=== PATIENT | male | born 1945 | race Caucasian/White ===

== ENCOUNTER 2022-02-15 22:30 | Emergency (ER) | payer MEDICARE, OTHER, SELFPAY ==
--- NOTE | ~2022-02-15 | CT_ITS ---
EXAMINATION: CT brain wo con DATE: 02/15/2022 22:50 INDICATION: Altered mental status. TECHNIQUE: Computed tomography (CT) of the head was performed without intravenous contrast. The mA wa s adjusted according to patient size. Iterative reconstruction technique was employed. The dose-lengt h product was 605.33 mGy-cm. COMPARISON: None FINDINGS: There is no intracranial hemorrhage, acute infarction, or abnormal intracranial mass lesion . The ventricles are normal in size. The orbits are normal. There is mucosal thickening in the parana jeff sinuses. The mastoid air cells are normal. IMPRESSION: 1. Normal brain. Reviewed, dictated and finalized at location A. TRONIC SYSTEM ENGINEER IMPRESSION: 1. Normal brain.
[2022-02-15 22:35] VITALS: BP 124/97; PULSE 65; RESP 16; O2SAT 94
--- NOTE | 2022-02-15 23:05 | ED.AMS ---
HPI - Altered Mental Status General Chief Complaint: Altered Mental Status Stated Complaint: AMS Time Seen by Provider: 02/15/22 22:34 History of Present Illness HPI narrative: 76-year-old male presented emergency department for evaluation of mental status change. retirement states that patient is usually disorientated but is more disorientated than normal time. Patient denies any complaints at this time. Patient does have a history of dementia. Related Data Allergies Allergy/AdvReac Type Severity Reaction Status Date / Time quetiapine [From Seroquel] Allergy Unknown Verified 02/15/22 22:41 Review of Systems Review of Systems: CONSTITUTIONAL: Denies fever, chills, or sweats. EYES: Denies visual changes, redness, or discharge. ENT: Denies rhinorrhea, congestion, sore throat, or otalgia. CARDIOVASCULAR: Denies chest pain, palpitations, or edema. RESPIRATORY: Denies cough or dyspnea. GASTROINTESTINAL: Denies abdominal pain, nausea, vomiting, or diarrhea. GENITOURINARY: Denies dysuria or hematuria. SKIN: Denies rash or itching. MUSCULOSKELETAL: Denies back pain, joint pain, or myalgia. NEUROLOGIC: See HPI Exam Narrative: APPEARANCE: Well appearing, no pain, no distress, well-nourished. HEAD: normocephalic, atraumatic. EYES: PERRLA/EOMI, conjunctivae clear. NOSE: Normal no drainage EARS:TMS clear with good light reflex. THROAT: Pharynx clear, no exudate. NECK: Supple. No adenopathy, no masses. RESPIRATORY: Airway patent, respirations nonlabored. Clear to auscultation bilaterally, no rales, rhonchi, wheezing. CARDIOVASCULAR: Regular rate and rhythm without murmurs rubs or gallops. ABDOMINAL: Soft, nontender, nondistended, normal bowel sounds MUSCULOSKELETAL: Moves all extremities. Strength/ROM intact, No edema, No calf tenderness. NEURO: Alert. Cranial nerves II through XII intact. Grossly intact SKIN: Warm, dry. Normal Color Course Course Emergency Course: Patient is afebrile with a minor leukocytosis of 10.1. Patient CBC is normal appearing, no significant abnormalities on the CMP. UA shows no evidence of urinary tract infection. Patient was negative for COVID and influenza. Patient's head CT is negative. Patient continues to have no complaints. Patient was [facility] the [facility] Vital Signs Vital signs: Vital Signs Pulse Rate 65 02/15/22 22:35 Respiratory Rate 16 02/15/22 22:35 Blood Pressure 124/97 H 02/15/22 22:35 Pulse Oximetry 94 02/15/22 22:35 Oxygen Delivery Room Air 02/15/22 22:35 Pulse Rate 66 02/15/22 23:34 Respiratory Rate 17 02/15/22 23:34 Blood Pressure 161/91 H 02/15/22 23:34 Pulse Oximetry 99 02/15/22 23:34 Oxygen Delivery Room Air 02/15/22 22:35 MDM - Altered Mental Status Lab Data Attestation: I reviewed the patient's lab results. Result diagrams: 02/15/22 23:09 02/15/22 23:09 Labs: Lab Results 02/15/22 02/15/22 02/15/22 Range/Units 23:09 23:09 23:09 WBC 10.1 H (4.5-10.0) K/mm3 RBC 4.28 L (4.6-6.20) M/mm3 Hgb 13.7 L (14.0-18.0) g/dL Hct 42.3 (42.0-52.0) % MCV 98.8 (80-100) fl MCH 32.0 (26-34) pg MCHC 32.4 (32-36) g/dl RDW 12.4 (11.5-14.5) % Plt Count 266 (150-375) k/mm3 MPV 9.4 (7.4-10.4) fl Immature Gran % (Auto) 0.8 H (0-0.5) % Neut % (Auto) 73.6 H (45.5-73.1) % Lymph % (Auto) 13.3 L (18.3-44.2) % [place] % (Auto) 8.1 (2.6-8.5) % Eos % (Auto) 3.8 (0-4.4) % Baso % (Auto) 0.4 (0.2-1.2) % Lymph # (Auto) 1.34 (0.9-3.2) K/mm3 [place] # (Auto) 0.8 H (0.1-0.6) K/mm3 Eos # (Auto) 0.4 H (0-0.3) K/mm3 Baso # (Auto) 0.0 (0.0-0.1) K/mm3 Abs Immat Gran (auto) 0.08 H (0.00-0.031) K/mm3 Absolute Neuts (auto) 7.4 H (1.3-6.7) K/mm3 Absolute Nucleated RBC 0.0 (0.0-0.012) K/mm3 Nucleated RBC % 0.0 (0.0-0.2) % Sodium 137 (137-145) mmol/L Potassium 4.4 (3.4-5.0) mmol/L Chlor
[2022-02-15 23:15] VITALS: PULSE 65
[2022-02-15 23:24] LABS: Basophils Percent Auto 0.4 % (0.2-1.2); Eosinophils Absolute Auto 0.4 K/mm3 (0-0.3); Eosinophils Percent Auto 3.8 % (0-4.4); Hematocrit 42.3 % (42.0-52.0); Hemoglobin 13.7 g/dL (14.0-18.0); Immature Granulocyte Absolute 0.08 K/mm3 (0.00-0.031); Immature Granulocyte Percent A 0.8 % (0-0.5); Lymphocytes Absolute Auto 1.34 K/mm3 (0.9-3.2); Lymphocytes Percent Auto 13.3 % (18.3-44.2); Mean Corpuscular HGB Conc 32.4 g/dl (32-36); Mean Corpuscular Volume 98.8 fl (80-100); Mean Platelet Volume 9.4 fl (7.4-10.4); Monocytes Absolute Auto 0.8 K/mm3 (0.1-0.6); Monocytes Percent Auto 8.1 % (2.6-8.5); Neutrophils Absolute Auto 7.4 K/mm3 (1.3-6.7); Neutrophils Percent Auto 73.6 % (45.5-73.1); Platelet Count Result 266 k/mm3 (150-375); Red Blood Count 4.28 M/mm3 (4.6-6.20); Red Cell Distribution Width 12.4 % (11.5-14.5); White Blood Count 10.1 K/mm3 (4.5-10.0)
[2022-02-15 23:34] VITALS: BP 161/91; PULSE 66; RESP 17; O2SAT 99
--- NOTE | 2022-02-15 23:37 | PC.NURSE ---
Report given to KIRA Stone
[2022-02-15 23:41] LABS: Alanine Aminotransferase 6 U/L (6-50); Alkaline Phosphatase 90 U/L (38-126); Anion Gap 7 mmol/L (8-16); Aspartate Amino Transferase 21 U/L (17-59); Bilirubin,Total 0.7 mg/dL (0.2-1.3); Blood Urea Nitrogen 29 mg/dL (9-20); Calcium 8.4 mg/dL (8.4-10.2); Carbon Dioxide 26 mmol/L (22-30); Chloride 104 mmol/L (98-107); Estimated Glomerular Filt Rate > 60; Glucose 94 mg/dL (65-110); Potassium 4.4 mmol/L (3.4-5.0); Sodium 137 mmol/L (137-145)
[2022-02-15 23:45] LABS: Appearance Urine Clear (Clear); Bilirubin Urine Negative (Negative); Blood Urine Negative (Negative); Color Urine Yellow (Yellow); Glucose Urine UA Negative (Negative); Ketones Urine 1+ mg/dL (Negative); Leukocyte Esterase Ur Negative LEU/UL (Negative); Nitrate Urine Negative (Negative); Protein Urine Negative (Negative); Specific Grav Ur 1.025 (1.001-1.035)
[2022-02-15 23:49] LABS: Mucus Urine Rare /lpf; Squamous Epithelial Cell Urine Rare /hpf (Few); WBC Urine 0-3 /hpf
[2022-02-15 23:52] LABS: Add Urine Microscopic? YES
[2022-02-16] LABS: Influenza A QL RT-PCR Negative (Negative); Influenza B QL RT-PCR Negative (Negative); SARS-CoV-2 RNA PCR Negative
== END 2022-02-16 00:51 ==
PROVIDERS: Emergency Provider Emergency Medicine; PCP Nurse Practitioner Family
DX: R41.82 Altered mental status, unspecified (principal); F03.90 Unspecified dementia, unspecified severity, without behavioral disturbance, psychotic disturbance, mood disturbance, and anxiety; Z20.822 Contact with and (suspected) exposure to COVID-19
CPT/HCPCS: 36415; 51701; 70450; 80053; 81001; 85025; 87636; 99284

== ENCOUNTER 2022-05-29 18:07 | Observation (INO) | payer MEDICARE, OTHER, SELFPAY ==
[2022-05-29] VITALS (13 sets, daily range): BP systolic 72–125; BP diastolic 42–75; PULSE 67–87; RESP 10–21; TEMP 36.8; O2SAT 97–100
--- NOTE | ~2022-05-29 | XR_ITS ---
EXAM: XR pelvis 1-2V DATE: 05/29/2022 19:15 HISTORY: fall . COMPARISON: None available. FINDINGS: Soft tissue anchors over the lower pelvis. Decreased mineralization. No fracture or disloc ation. No lytic or blastic lesion. Degenerative disc disease in the lumbar spine. Mild left and moder ate right hip osteoarthritis. No erosion or periosteal change. Soft tissues within normal limits. IMPRESSION: No acute osseous finding in the pelvis. Reviewed, dictated and finalized at location K. MEASURES ABSTRACTOR
--- NOTE | ~2022-05-29 | CT_ITS ---
EXAMINATION: CT cervical spine wo con DATE: 05/29/2022 19:09 INDICATION: fall TECHNIQUE: Computed tomography (CT) of the cervical spine was performed without intravenous contrast. Automated exposure control and iterative reconstruction technique were employed. The dose-length pro duct was 225.68 mGy-cm. COMPARISON: None. FINDINGS: Vertebral Body Alignment: Intact. . Craniocervical and atlantoaxial alignment: Moderate degenerative change. Alignment intact. Osseous structures/fracture: No evidence of a lytic or blastic process in the visualized spine. No e vidence of acute fracture. . Cervical soft tissues: The paraspinal soft tissues planes are maintained. Degenerative changes: Multilevel degenerative disc disease and facet arthropathy. Severe right neural foraminal narrowing at C5-6. Severe left neural foraminal narrowing at C4-5 no severe central canal stenosis. IMPRESSION: No acute fracture or traumatic malalignment in the cervical spine. Reviewed, dictated and finalized at location K. ETL DEVELOPER
--- NOTE | ~2022-05-29 | XR_ITS ---
EXAMINATION: XR chest 1V portable Exam Date/Time: 05/29/2022 20:50 STEAM AND GAS TURBINES ASSEMBLER HISTORY: Fall UNABLE TO GET HISTORY, AMS Comparison: None available. RESULT: Lines, tubes, and devices: None. Lungs and pleura: Mild diffuse reticular opacities. Senescent change. Calcified left lung granulomas . Streaky bibasilar opacities likely represent atelectasis or scar. Cardiomediastinal silhouette: Mild arch ectasia and tortuosity. Other: No acute osseous or upper abdominal finding. IMPRESSION: Mild interstitial edema. Reviewed, dictated and finalized at location K. M AND GAS TURBINES ASSEMBLER IMPRESSION: Mild interstitial edema.
--- NOTE | ~2022-05-29 | CT_ITS ---
EXAMINATION: CT brain wo con DATE: 05/29/2022 19:06 INDICATION: Ground-level fall. TECHNIQUE: Computed tomography (CT) of the head was performed without intravenous contrast. The mA wa s adjusted according to patient size. Iterative reconstruction technique was employed. The dose-lengt h product was 1210.67 mGy-cm. COMPARISON: 02/15/2022. FINDINGS: No acute intracranial hemorrhage or extra-axial fluid collection. No hydrocephalus, mass, or herniation. No acute ischemic infarct. Unremarkable dural venous sinus attenuation. No acute osseous abnormality. Small right parietal scalp contusion. Ethmoid mucosal thickening, the remaining aerated spaces are clear. Mild atrophy and chronic white matter change. Atherosclerotic intracranial calcification. Left basal ganglia calcification. IMPRESSION: No acute intracranial process. Reviewed, dictated and finalized at location K. H CORRECTIONS OFFICER
--- NOTE | 2022-05-29 19:04 | ED.HEATRA ---
HPI - Head Injury General Chief complaint: Head Injury Stated complaint: FALL, HEAD INJURY, NO BLOOD THINNERS Time Seen by Provider: 05/29/22 18:45 Source: patient and EMS Mode of arrival: EMS Limitations: altered mental status History of Present Illness HPI Narrative: Patient is 76 years old white male came by ambulance following witnessed fall at the facility. Facility denies loss of consciousness, patient is confused which is his baseline, patient unable to answer any LOC questions or say how he fell. Arrived with c-collar on. Patient was able to answer yes or no and follow my commands sometime History of Parkinson's, psychosis/dementia with behavioral disturbances, hyperlipidemia Related Data Allergies Allergy/AdvReac Type Severity Reaction Status Date / Time quetiapine [From Seroquel] Allergy Unknown Verified 05/29/22 18:48 Review of Systems Review of Systems: All systems reviewed & are unremarkable except as noted in HPI and below Exam Narrative: General appearance: Well-developed, well-nourished, c-collar in place Skin: Normal color Head: Normocephalic, nontraumatic Eyes: Clear conjunctiva ENT: Oropharynx normal, ears normal, nose normal Neck: C-collar in place Chest and respiratory: Airway patent, no respiratory distress, no accessory muscle use Heart: Regular rate/rhythm Abdomen: Soft, nontender, no organomegaly, quiet bowel sounds Vascular: Normal peripheral pulses, normal capillary refill. Musculoskeletal: Normal range of motion, nontender back Neurologic: Alert and disoriented x3 Course Vital Signs Vital signs: Vital Signs Temperature 36.8 C 05/29/22 18:28 Pulse Rate 87 05/29/22 18:28 Respiratory Rate 16 05/29/22 18:28 Blood Pressure 72/42 L 05/29/22 18:28 Pulse Oximetry 98 05/29/22 18:28 Oxygen Delivery Room Air 05/29/22 18:28 Temperature 36.8 C 05/29/22 18:28 Pulse Rate 71 05/29/22 19:56 Respiratory Rate 16 05/29/22 19:56 Blood Pressure 122/75 05/29/22 19:56 Pulse Oximetry 98 05/29/22 19:30 Oxygen Delivery Room Air 05/29/22 18:28 MDM - Head Injury MDM Narrative Medical decision making narrative: Patient is 76 years old white male came to the emergency room from detention because of a fall. History of Parkinson. Patient is nonverbal. Labs, UA, chest x-ray, CT head, cervical spine, pelvis ordered. Blood work-up showed creatinine of 1.4 compared to 0.7 February 15, 2022, urine analysis showing infection, which could be the underlying cause of patient falling. CT head, cervical spine and pelvis showed no acute abnormalities. Chest x-ray showed mild interstitial edema. Patient received 1 g of Rocephin IV and 1 L of normal saline IV prior to admission. Differential Diagnosis Differential diagnosis: Likely concussion without loss of consciousness, subarachnoid hematoma, subdural hematoma and other (Electrolyte imbalance, urinary tract infection, pneumonia) Lab Data 05/29/22 19:22 05/29/22 19:22 Labs: Lab Results 05/29/22 05/29/22 05/29/22 Range/Units 19:22 19:22 19:53 WBC 6.6 (4.5-10.0) K/mm3 RBC 3.83 L (4.6-6.20) M/mm3 Hgb 12.4 L (14.0-18.0) g/dL Hct 37.5 L (42.0-52.0) % MCV 97.9 (80-100) fl MCH 32.4 (26-34) pg MCHC 33.1 (32-36) g/dl RDW 12.6 (11.5-14.5) % Plt Count 162 (150-375) k/mm3 MPV 10.8 H (7.4-10.4) fl Immature Gran % (Auto) 0.5 (0-0.5) % Neut % (Auto) 71.0 (45.5-73.1) % Lymph % (Auto) 16.9 L (18.3-44.2) % [place] % (Auto) 8.0 (2.6-8.5) % Eos % (Auto) 3.3 (0-4.4) % Baso % (Auto) 0.3 (0.2-1.2) % Lymph # (Auto) 1.12 (0.9-3.2) K/mm3 [place] # (Auto) 0.5 (
[2022-05-29 19:29] LABS: Basophils Percent Auto 0.3 % (0.2-1.2); Eosinophils Absolute Auto 0.2 K/mm3 (0-0.3); Eosinophils Percent Auto 3.3 % (0-4.4); Hematocrit 37.5 % (42.0-52.0); Hemoglobin 12.4 g/dL (14.0-18.0); Immature Granulocyte Absolute 0.03 K/mm3 (0.00-0.031); Immature Granulocyte Percent A 0.5 % (0-0.5); Lymphocytes Absolute Auto 1.12 K/mm3 (0.9-3.2); Lymphocytes Percent Auto 16.9 % (18.3-44.2); Mean Corpuscular HGB Conc 33.1 g/dl (32-36); Mean Corpuscular Hemoglobin 32.4 pg (26-34); Mean Corpuscular Volume 97.9 fl (80-100); Mean Platelet Volume 10.8 fl (7.4-10.4); Monocytes Absolute Auto 0.5 K/mm3 (0.1-0.6); Neutrophils Absolute Auto 4.7 K/mm3 (1.3-6.7); Platelet Count Result 162 k/mm3 (150-375); Red Blood Count 3.83 M/mm3 (4.6-6.20); Red Cell Distribution Width 12.6 % (11.5-14.5); White Blood Count 6.6 K/mm3 (4.5-10.0)
[2022-05-29 19:40] LABS: Alanine Aminotransferase 7 U/L (6-50); Albumin Level 3.6 g/dL (3.5-5.1); Alkaline Phosphatase 56 U/L (38-126); Anion Gap 5 mmol/L (8-16); Aspartate Amino Transferase 25 U/L (17-59); Bilirubin,Total 0.8 mg/dL (0.2-1.3); Blood Urea Nitrogen 36 mg/dL (9-20); Calcium 8.1 mg/dL (8.4-10.2); Carbon Dioxide 25 mmol/L (22-30); Chloride 108 mmol/L (98-107); Estimated Glomerular Filt Rate 49; Glucose 99 mg/dL (65-110); Sodium 138 mmol/L (137-145)
[2022-05-29 20:03] LABS: Appearance Urine Clear (Clear); Bilirubin Urine Negative (Negative); Blood Urine Trace-intact (Negative); Color Urine Yellow (Yellow); Glucose Urine UA Negative (Negative); Ketones Urine 1+ mg/dL (Negative); Leukocyte Esterase Ur Trace LEU/UL (Negative); Nitrate Urine Positive (Negative); Protein Urine Trace mg/dL (Negative); Specific Grav Ur 1.015 (1.001-1.035)
[2022-05-29 20:07] LABS: Bacteria Urine Trace /hpf; Mucus Urine Rare /lpf; RBC Urine 21-50 /hpf (0-2); Squamous Epithelial Cell Urine Rare /hpf (Few); WBC Urine 16-20 /hpf
[2022-05-29 20:23] LABS: Add Urine Microscopic? YES
--- NOTE | 2022-05-29 20:44 | ECG_ITS ---
Measurements Intervals [place] Rate: 64 P: 58 TX: 150 QRS: 20 QRSD: 94 T: 7 QT: 407 QTc: 421 Interpretive Statements SINUS RHYTHM MINIMAL VOLTAGE CRITERIA FOR LVH, CONSIDER NORMAL VARIANT [MEETS CRITERIA IN ONE OF: R(aVL), S(V1), R(V5), R(V5/V6)+S(V1)] NONSPECIFIC T-WAVE ABNORMALITY ABNORMAL ECG NO PREVIOUS ECG AVAILABLE FOR COMPARISON Electronically Signed On 05-30-2022 13:39:35 GEOPHYSICAL MANAGER by Denis Sylvester M.D.
--- NOTE | 2022-05-29 20:59 | PC.NURSE ---
c-collar removed at this time.
[2022-05-29 21:14] LABS: Lactic Acid Reflex 0.7 mmol/L (0.7-2.0)
[2022-05-29 21:17] LABS: CRP < 0.5 mg/dL (<1.0)
[2022-05-29 21:40] LABS: Influenza A QL RT-PCR Negative (Negative); Influenza B QL RT-PCR Negative (Negative); SARS-CoV-2 RNA PCR Negative
[2022-05-29] MEDS: SODIUM CHLORIDE 0.9% IV 1,000 ML 999 ML IV CONT (21:44)
--- NOTE | 2022-05-29 23:44 | ADMGEN ---
This patient, George Harding, was admitted to Medical Room 245-. Patient/family oriented to hospital policies and general routines including ID bracelet, bed and alarms, visiting hours, pain management, procedures, bathroom and other care routines, personal items, smoking policy, room service/diet, and visiting hours. Information on how to activate the Rapid Response Team has been discussed. Patient/Family are encouraged to report perceived risks to care and to ask questions if they do not understand what they are told or what they should do.
[2022-05-29] MEDS: SODIUM CHLORIDE 0.9% IV 1,000 ML 100 ML IV CONT (23:54)
[2022-05-30 00:26] VITALS: BP 136/87; PULSE 73; RESP 21; TEMP 36.3; O2SAT 100
[2022-05-30 05:47] LABS: Hematocrit 37.6 % (42.0-52.0); Hemoglobin 12.4 g/dL (14.0-18.0); Mean Corpuscular Hemoglobin 32.5 pg (26-34); Mean Corpuscular Volume 98.7 fl (80-100); Mean Platelet Volume 10.4 fl (7.4-10.4); Platelet Count Result 145 k/mm3 (150-375); Red Blood Count 3.81 M/mm3 (4.6-6.20); Red Cell Distribution Width 12.6 % (11.5-14.5); White Blood Count 5.1 K/mm3 (4.5-10.0)
[2022-05-30 06:00] VITALS: BP 150/78; PULSE 58; RESP 21; TEMP 36.7; O2SAT 100
[2022-05-30 06:00] LABS: Anion Gap 2 mmol/L (8-16); Blood Urea Nitrogen 27 mg/dL (9-20); Calcium 7.9 mg/dL (8.4-10.2); Carbon Dioxide 30 mmol/L (22-30); Chloride 109 mmol/L (98-107); Estimated Glomerular Filt Rate > 60; Glucose 79 mg/dL (65-110); Potassium 4.2 mmol/L (3.4-5.0); Sodium 141 mmol/L (137-145)
--- NOTE | 2022-05-30 06:09 | PM.IMHP ---
H&P: HPI History of Present Illness Date/Time: 05/30/22 04:00 Chief Complaint: Witnessed fall Narrative: 76-year-old male with a past medical history of Parkinson's associated dementia with psychosis, hyperlipidemia, anxiety and insomnia who presented to the ER from [facility] due to a fall. The facility reported that the patient did not lose consciousness. He is confused at his baseline and is oriented to person he is able to tell me the year currently but was not able to do so for nursing staff or ER staff. He only said no to various review of systems. Since he has been admitted to the hospital he has already ripped out more than 1 IV. He is restless and does not seem to comprehend directions. In the ER CT scan of the head and neck demonstrated no acute process. X-ray of the pelvis was negative for fracture. However, the patient had creatinine of 1.4 which was double his baseline creatinine compared to February 2022 and his urine was consistent with UTI. The patient arrived to the floor had nursing staff check patient's postvoid residual which was 0. Patient has no listed history of BPH who correction papers. The patient received 2 L normal saline bolus in the ER and had been receiving maintenance IV fluids. However patient ripped out his IV and was not cooperative in reinserting the IV. Nursing staff reports that the patient has been eating and drinking well. I asked the patient if he was thirsty currently told me know not anymore. Nursing staff had told me that he had just drink a significant amount of water before I came into the room. Patient has not had any vomiting or evidence of diarrhea. Review of Systems Review of Systems: ROS unobtainable: Yes unobtainable due to medical condition (Due to dementia) [facility] Past Medical History Medical History (Updated 05/30/22 @ 06:51 by Arianne Souza DO) Dementia due to Parkinson's disease, with psychotic disturbance Surgical History Surgical History (Updated 05/30/22 @ 06:35 by Arianne Souza DO) Status post cataract extraction of both eyes with insertion of intraocular lens Family History Family History Mother Memory change Social History Social History (Updated 05/30/22 @ 06:36 by Arianne Souza DO) Social History: Patient resides at [facility]. Code status: DNR/DNI (per correction records) Smoking status: Former smoker Additional smoking assessment comments: quit at age 29 Alcohol intake: unknown Substance use: never Substance use type: does not use Spiritual care concerns: No Meds Home Medications and Allergies Home Medications Medication Instructions Recorded Confirmed Type Adults Multivitamin 1 tab-cap PO DAILY 05/29/22 05/29/22 History carbidopa 25 mg-levodopa 100 mg 2 tablet PO .5XDAY 05/29/22 05/29/22 History tablet divalproex 125 mg capsule,delayed 250 mg PO DAILY 05/29/22 05/29/22 History release sprinkle divalproex 125 mg capsule,delayed 500 mg PO .1PM/6PM 05/29/22 05/29/22 History release sprinkle melatonin 3 mg tablet 6 mg PO HS 05/29/22 05/29/22 History ointment base no.51 (bulk) 1 ea topical DAILY 05/29/22 05/29/22 History quetiapine 100 mg tablet 100 mg PO .6PM 05/29/22 05/29/22 History quetiapine 25 mg tablet 25 mg PO .8AM/RPM 05/29/22 05/29/22 History quetiapine 50 mg tablet 50 mg PO .8AM/4PM/6PM 05/29/22 05/29/22 History rivastigmine 4.6 mg topical Q24H 05/29/22 05/29/22 History simvastatin 20 mg tablet 20 mg PO .6PM 05/29/22 05/29/22 History Allergies Allergy/AdvReac Type Severity Reaction Status Date / Time quetiapine [From Seroquel] Allergy Unknown Verified 05/29/22 18:48 Vital Signs Vital Signs - 24 hr 05/29/22 18:28 05/29/22 19:22 05/29/22 19:30 Temperature 98.2 F Pulse Rate 87 68 67 Respiratory Rate 16 11 L 10 L Blood Pressure 72/42 L Pulse Oximetry 98 97 98 Oxygen Delivery Room Air
[2022-05-30] MEDS: MULTIVITAMINS THERAPEUTIC TAB (*BKC) 1 TABLET PO (08:31)
[2022-05-30] MEDS: CEFDINIR 300 MG CAPSULE PO ×2 (08:32→20:22)
[2022-05-30] MEDS: CARBIDOPA/LEVODOPA 25/100 MG TABLET 2 TABLET PO ×5 (08:32→17:57)
[2022-05-30] MEDS: RIVASTIGMINE TARTRATE 4.6 MG PATCH 1 PATCH TRANSDERM (08:32)
[2022-05-30] MEDS: DIVALPROEX SODIUM SPRINKLE 125 MG CAP.DR 250 MG PO (08:32)
[2022-05-30] MEDS: QUEtiapine FUMARATE 25 MG TABLET 75 MG PO ×2 (08:37→15:52)
[2022-05-30] MEDS: diphenhydrAMINE HCl CAP 25 MG CAPSULE PO ×2 (09:42→15:50)
[2022-05-30] MEDS: DIVALPROEX SODIUM SPRINKLE 125 MG CAP.DR 500 MG PO ×2 (12:55→17:56)
[2022-05-30 13:57] VITALS: BP 110/66; PULSE 68; RESP 20; TEMP 36.8; O2SAT 100
[2022-05-30] MEDS: SIMVASTATIN 20 MG TABLET PO (17:58)
[2022-05-30] MEDS: QUEtiapine FUMARATE 100 MG TABLET PO (17:58)
[2022-05-30] MEDS: QUEtiapine FUMARATE 25 MG TABLET 50 MG PO (17:58)
[2022-05-30 19:41] VITALS: BP 115/61; PULSE 110; RESP 20; TEMP 36.4; O2SAT 100
[2022-05-30] MEDS: OLANZapine 5 MG, WATER, STERILE FOR INJECTION 2.1 ML IM (20:19)
[2022-05-30] MEDS: MELATONIN 3 MG TABLET 6 MG PO (20:23)
[2022-05-30] MEDS: LORazepam INJ (*CRX) 2 MG/ML VIAL 1 MG IV PUSH (22:21)
[2022-05-31] MEDS: RIVASTIGMINE TARTRATE 4.6 MG PATCH 1 PATCH TRANSDERM (08:37)
--- NOTE | 2022-05-31 08:48 | PCOTNOTE ---
Attempted OT evaluation, unable to complete, patient is unarousable at this time, RN aware.
[2022-05-31 10:23] VITALS: O2SAT 93
[2022-05-31] MEDS: QUEtiapine FUMARATE 25 MG TABLET 75 MG PO (10:26)
[2022-05-31] MEDS: DIVALPROEX SODIUM SPRINKLE 125 MG CAP.DR 250 MG PO (10:26)
[2022-05-31] MEDS: CARBIDOPA/LEVODOPA 25/100 MG TABLET 2 TABLET PO ×3 (10:26→13:35)
[2022-05-31] MEDS: MULTIVITAMINS THERAPEUTIC TAB (*BKC) 1 TABLET PO (10:26)
[2022-05-31] MEDS: CEFDINIR 300 MG CAPSULE PO (10:26)
--- NOTE | 2022-05-31 10:27 | PC.NURSE ---
Attempted to give pt 0800 and 0900 meds and patient was droswy and unwilling to take after scanning the medications. At 1030 pt was willing and able to take these medications but I had already disposed of the medication wrappers, so medications were documented manually rather than scanned.
--- NOTE | 2022-05-31 11:56 | PM.IMPN ---
Progress Note: A&P Assessment and Plan (1) Urinary tract infection: Qualifiers: Hematuria presence: without hematuria Urinary tract infection type: site unspecified Qualified Code(s): N39.0 - Urinary tract infection, site not specified Code(s): N39.0 - Urinary tract infection, site not specified Status: Acute Assessment and Plan: Patient has a possible urinary tract infection. He received a dose of Rocephin. The detention did not reports the patient had increased confusion from baseline. The patient is eating and drinking well. He has been afebrile. Patient pulled his IV out. If patient urine cultures come back positive he would be candidate for oral antibiotics. I am not going to restart the patient's IV. Will start cefdinir until culture results are known. (2) [place] (acute kidney injury): Code(s): N17.9 - Acute kidney failure, unspecified Status: Acute Assessment and Plan: Patient's repeat BMP results have returned to some finishing this documentation. The patient has acute kidney injury has improved in the patient's creatinine is within the normal range but still above his baseline. Encourage p.o. intake. (3) Fall: Code(s): W19.XXXA - Unspecified fall, initial encounter Status: Acute Assessment and Plan: Patient is on fall precautions. Plan Patient has been admitted as observation status. Subjective Date/time seen: 05/31/22 11:56 No issues Exam Narrative: Weight 62.5 kg Const: Other: Elderly, well-developed well-nourished, thin body habitus, lying flat in bed HENMT: Other: Head is normocephalic atraumatic, pupils are equal and reactive, mucous membranes are tacky, upper dentures in place, lower jaw with some missing teeth remainder of dentition is fair, what appears to be mild erythematous area to the left upper scalp extending towards the forehead does not appear to be a rash may be more persistent pigmentation or chronic skin lesion Eyes: Other: Pupils equal and reactive, evidence of prior cataract extraction, no significant conjunctival pallor, no scleral icterus Neck: Other: No thyromegaly, no lymphadenopathy Resp: Other: Clear to auscultation bilaterally, no increased work of breathing Cardio: Other: Regular rate, regular rhythm, 2+ bilateral radial pedal pulses GI: Other: Soft, nontender, concave, positive bowel sounds, no organomegaly : Other: Normal circumcised male Skin: Other: Mild pallor, non jaundice Neuro: Other: Alert oriented person, opens eyes command, answers words with yes and no responses, or 2-3 words at a time, no facial asymmetry, moves all extremities equally, no localizing neurologic deficits given limited exam, normal tone Extrem: Other: No clubbing, cyanosis or edema, no pain joints with movement Psych: Other: Confused, intermittently cooperative, difficult to redirect, flat affect Objective Data Vital Signs Vital Signs: Vital Signs - 24 hr 05/30/22 13:57 05/30/22 19:41 05/30/22 20:00 Temperature 98.2 F 97.5 F L Pulse Rate 68 110 H Respiratory Rate 20 20 Blood Pressure 110/66 115/61 Pulse Oximetry 100 100 Oxygen Delivery Room Air 05/31/22 10:23 05/31/22 08:40 Temperature Pulse Rate Respiratory Rate Blood Pressure Pulse Oximetry 93 Oxygen Delivery Room Air Room Air Intake/Output Intake/Output: Intake & Output 05/28/22 05/29/22 05/30/22 05/31/22 23:59 23:59 23:59 23:59 Intake Total 50 820 Output Total 2200 Balance 50 -1380 Meds/Results Medications: Active Medications Generic Name Dose Route Start Last Admin Trade Name Jerryq PRN Reason Stop Dose Admin Carbidopa/Levodopa 2 tablet 05/30/22 08:00 05/31/22 10:26 Carbidopa/Levodopa 25/100 Mg Tablet PO 2 tablet 0800,1030,1300,1530,1800 DAYAN Administration Cefdinir 300 mg 05/30/22 09:00 05/31/22 10:26 Cefdinir 300 Mg Capsule PO 300 mg Q12
--- NOTE | 2022-05-31 12:19 | PM.DS ---
DS: Admitting Diagnosis Discharge Date 05/31/22 Admitting Diagnosis UTI DS: Discharge Diagnosis Discharge Diagnosis (1) Urinary tract infection: Qualifiers: Hematuria presence: without hematuria Urinary tract infection type: site unspecified Qualified Code(s): N39.0 - Urinary tract infection, site not specified Code(s): N39.0 - Urinary tract infection, site not specified Status: Acute Assessment and Plan: Patient has a possible urinary tract infection. He received a dose of Rocephin. The [facility] did not reports the patient had increased confusion from baseline. The patient is eating and drinking well. He has been afebrile. Patient pulled his IV out. If patient urine cultures come back positive he would be candidate for oral antibiotics. I am not going to restart the patient's IV. Will start cefdinir until culture results are known. (2) [place] (acute kidney injury): Code(s): N17.9 - Acute kidney failure, unspecified Status: Acute Assessment and Plan: Patient's repeat BMP results have returned to some finishing this documentation. The patient has acute kidney injury has improved in the patient's creatinine is within the normal range but still above his baseline. Encourage p.o. intake. (3) Fall: Code(s): W19.XXXA - Unspecified fall, initial encounter Status: Acute Assessment and Plan: Patient is on fall precautions. Plan Patient has been admitted as observation status. DS: Summary Hospital Course Hospital Course: patient is 76-year-old male was admitted from an outside facility secondary to a fall. Upon evaluation here he was found to have acute kidney injury and was mildly dehydrated. He was also found have UTI. He was started on antibiotics and did well. His kidney function subsequently improved. He is tolerating a diet he can be discharged back to his facility. Time Spent with Patient Time attestation: Total time spent providing and/or coordinating discharge services: Exam Narrative: Weight 62.5 kg Const: Other: Elderly, well-developed well-nourished, thin body habitus, lying flat in bed HENMT: Other: Head is normocephalic atraumatic, pupils are equal and reactive, mucous membranes are tacky, upper dentures in place, lower jaw with some missing teeth remainder of dentition is fair, what appears to be mild erythematous area to the left upper scalp extending towards the forehead does not appear to be a rash may be more persistent pigmentation or chronic skin lesion Eyes: Other: Pupils equal and reactive, evidence of prior cataract extraction, no significant conjunctival pallor, no scleral icterus Neck: Other: No thyromegaly, no lymphadenopathy Resp: Other: Clear to auscultation bilaterally, no increased work of breathing Cardio: Other: Regular rate, regular rhythm, 2+ bilateral radial pedal pulses GI: Other: Soft, nontender, concave, positive bowel sounds, no organomegaly : Other: Normal circumcised male Skin: Other: Mild pallor, non jaundice Neuro: Other: Alert oriented person, opens eyes command, answers words with yes and no responses, or 2-3 words at a time, no facial asymmetry, moves all extremities equally, no localizing neurologic deficits given limited exam, normal tone Extrem: Other: No clubbing, cyanosis or edema, no pain joints with movement Psych: Other: Confused, intermittently cooperative, difficult to redirect, flat affect DS: Data Data Completed and Pending Labs on day of discharge: Preliminary micro results at discharge 05/29/22 19:53 Urine Culture - Preliminary Urine Clean Catch Coag neg Staph, not saprophyti 05/29/22 20:56 Blood Culture - Preliminary Blood 05/29/22 20:56 Blood Culture - Preliminary Blood Discharge Plan Discharge Attending physician on discharge: Db Tang Discharging Clinician: Db Tang Patient Dis
[2022-05-31] MEDS: DIVALPROEX SODIUM SPRINKLE 125 MG CAP.DR 500 MG PO (12:26)
== END 2022-05-31 14:54 ==
LOC: ANHED 19:11 → ANH2MED 23:27
PROVIDERS: Admitting Provider Internal Medicine; Emergency Provider Emergency Medicine; Visit Provider Chiropractor
DX: N39.0 Urinary tract infection, site not specified (principal); N17.9 Acute kidney failure, unspecified; S09.90XA Unspecified injury of head, initial encounter; W18.30XA Fall on same level, unspecified, initial encounter; R41.82 Altered mental status, unspecified; G20 Parkinson's disease; F02.A2 Dementia in other diseases classified elsewhere, mild, with psychotic disturbance; Z20.822 Contact with and (suspected) exposure to COVID-19; J84.9 Interstitial pulmonary disease, unspecified; B95.7 Other staphylococcus as the cause of diseases classified elsewhere; E78.5 Hyperlipidemia, unspecified; Z66 Do not resuscitate; F41.9 Anxiety disorder, unspecified; R90.82 White matter disease, unspecified; R94.31 Abnormal electrocardiogram [ECG] [EKG]; G47.00 Insomnia, unspecified; Z87.891 Personal history of nicotine dependence; Z79.899 Other long term (current) drug therapy
CPT/HCPCS: 36415; 70450; 71045; 72125; 72170; 80048; 80053; 81001; 83605; 85025; 85027; 86140; 87040; 87086; 87147; 87181; 87186; 87636; 93005; 96365; 96372; 96375; 99285; A9270; G0378; J0696; J2060; J7030

== ENCOUNTER 2022-06-04 16:41 | Emergency (ER) | payer MEDICARE, OTHER, SELFPAY ==
--- NOTE | ~2022-06-04 | CT_ITS ---
EXAMINATION: CT cervical spine wo con DATE: 06/04/2022 17:42 INDICATION: fall TECHNIQUE: Computed tomography (CT) of the cervical spine was performed without intravenous contrast. Automated exposure control and iterative reconstruction technique were employed. The dose-length pro duct was 208.76 mGy-cm. COMPARISON: 05/29/2022. FINDINGS: Vertebral Body Alignment: Intact. Mild reversal of the normal cervical lordosis. Stable trace anterol isthesis at C2-3, likely on a degenerative basis. Craniocervical and atlantoaxial alignment: Moderate degenerative change. Alignment intact. Osseous structures/fracture: No evidence of a lytic or blastic process in the visualized spine. No e vidence of acute fracture. Cervical soft tissues: The paraspinal soft tissues planes are maintained. Degenerative changes: Multilevel severe degenerative disc disease and facet arthropathy. Severe right neural foraminal narrowing at C5-6. Severe left neural foraminal narrowing at C4-5. No severe centra l canal narrowing.. IMPRESSION: No acute fracture or traumatic malalignment in the cervical spine. Reviewed, dictated and finalized at location K. NESS TAXES SPECIALIST
--- NOTE | ~2022-06-04 | CT_ITS ---
EXAMINATION: CT brain wo con DATE: 06/04/2022 17:37 INDICATION: fall . TECHNIQUE: Computed tomography (CT) of the head was performed without intravenous contrast. The mA wa s adjusted according to patient size. Iterative reconstruction technique was employed. The dose-lengt h product was 605.33 mGy-cm. COMPARISON: 05/29/2022. FINDINGS: No acute intracranial hemorrhage or extra-axial fluid collection. No hydrocephalus, mass, or herniation. No acute ischemic infarct. Unremarkable dural venous sinus attenuation. No acute osseous abnormality. Right posterior scalp contusion and laceration. Mild mucosal thickening in the ethmoid air cells, the remaining aerated spaces are clear. Mild atrophy and chronic white matter change. Atherosclerotic intracranial calcification. Left basal ganglia calcification. IMPRESSION: No acute intracranial process. Reviewed, dictated and finalized at location K. IGURATION MANAGER
[2022-06-04 16:46] VITALS: BP 108/60; PULSE 86; RESP 18; TEMP 36.6; O2SAT 99
[2022-06-04 17:11] VITALS: RESP 18
--- NOTE | 2022-06-04 17:29 | ED.FALL ---
HPI - Fall General Chief Complaint: Fall Stated Complaint: fall Time Seen by Provider: 06/04/22 16:51 History of Present Illness HPI Narrative: Patient is a 76-year-old male with a history of dementia, Parkinson's presenting after a fall. Patient's family reports that he has been unsteady for some time. He has had multiple falls. Patient has been encouraged to use a walker but this is a new thing so he often forgets. Today she had a witnessed fall at his nursing facility. He fell back and struck his head. No loss of consciousness. Patient was placed in a c-collar and brought in for evaluation. Currently, the patient denies significant complaint. He complains of mild soreness on the back of his head. He is A&O x1 which is his baseline. Related Data Home Medications Medication Instructions Recorded Confirmed carbidopa 25 mg-levodopa 100 mg 2 tablet PO .05/29/22 05/29/22 tablet divalproex 125 mg capsule,delayed 250 mg PO DAILY 05/29/22 05/29/22 release sprinkle divalproex 125 mg capsule,delayed 500 mg PO .1PM/6PM 05/29/22 05/29/22 release sprinkle melatonin 3 mg tablet 6 mg PO HS 05/29/22 05/29/22 ointment base no.51 (bulk) 1 ea topical DAILY 05/29/22 05/29/22 quetiapine 100 mg tablet 100 mg PO .6PM 05/29/22 05/29/22 quetiapine 25 mg tablet 25 mg PO .8AM/RPM 05/29/22 05/29/22 quetiapine 50 mg tablet 50 mg PO .8AM/4PM/6PM 05/29/22 05/29/22 rivastigmine 4.6 mg topical Q24H 05/29/22 05/29/22 simvastatin 20 mg tablet 20 mg PO .6PM 05/29/22 05/29/22 multivitamin-ferrous tablet PO 06/04/22 fumarate-folic acid 18 mg-400 mcg tablet (Certavite-Antioxidant) quetiapine 100 mg tablet mg 06/04/22 Allergies Allergy/AdvReac Type Severity Reaction Status Date / Time quetiapine [From Seroquel] Allergy Unknown Verified 06/04/22 17:07 Review of Systems Review of Systems: ROS unobtainable: Yes unobtainable due to mental status (underlying dementia) [facility] Past Medical History Medical History Dementia due to Parkinson's disease, with psychotic disturbance Surgical History Surgical History Status post cataract extraction of both eyes with insertion of intraocular lens Family History Family History Mother Memory change Social History Social History Social History: Patient resides at [facility]. Code status: DNR/DNI (per detention records) Smoking status: Former smoker Additional smoking assessment comments: quit at age 29 Alcohol intake: unknown Substance use: never Substance use type: does not use Spiritual care concerns: No Exam Narrative: GENERAL: Well-appearing, well-nourished, and in no acute distress. HEAD: Normocephalic, 1 cm abrasion posterior scalp, bleeding is controlled EYES: PERRLA and EOMI. ENT: Nares clear, no rhinorrhea or epistaxis. Mucous membranes moist. NECK: C-collar in place, no midline tenderness CHEST: Clear to auscultation. No respiratory distress. HEART: Regular rate and rhythm. No murmur heard. Normal peripheral pulses. ABDOMEN: Soft, nontender, nondistended EXTREMITIES: Normal range of motion. No edema. SKIN: Warm, dry, no rash. NEURO: No focal deficits. Alert and oriented x1 which is his baseline, moving all extremities spontaneously. PSYCH: Normal mood and affect. Course Vital Signs Vital signs: Vital Signs Temperature 97.9 F 06/04/22 16:46 Pulse Rate 86 06/04/22 16:46 Respiratory Rate 18 06/04/22 16:46 Blood Pressure 108/60 06/04/22 16:46 Pulse Oximetry 99 06/04/22 16:46 Oxygen Delivery Room Air 06/04/22 16:46 Temperature 97.9 F 06/04/22 16:46 Pulse Rate 86 06/04/22 18:41 Respiratory Rate 18 06/04/22 18:41 Blood Pressure 138/76 06/04/22 18:41 Pulse Oximetry 99 02
[2022-06-04] MEDS: ACETAMINOPHEN 500 MG TABLET 1000 MG PO (17:47)
--- NOTE | 2022-06-04 18:40 | PC.NURSE ---
Ela Stapleton aware that patient is being discharged. family taking patient back to facility
[2022-06-04 18:41] VITALS: BP 138/76; PULSE 86; RESP 18; O2SAT 99
== END 2022-06-04 18:43 | disposition home or self-care (01) ==
PROVIDERS: Emergency Provider Emergency Medicine
DX: S09.90XA Unspecified injury of head, initial encounter (principal); G20 Parkinson's disease; F02.80 Dementia in other diseases classified elsewhere, unspecified severity, without behavioral disturbance, psychotic disturbance, mood disturbance, and anxiety; W01.0XXA Fall on same level from slipping, tripping and stumbling without subsequent striking against object, initial encounter
CPT/HCPCS: 70450; 72125; 99284; A9270

== ENCOUNTER 2022-06-10 16:58 | Emergency (ER) | payer OTHER, MEDICARE, SELFPAY ==
--- NOTE | ~2022-06-10 | CT_ITS ---
EXAMINATION: CT brain wo con INDICATION: Head injury COMPARISON: 06/04/2022 TECHNIQUE: Standard unenhanced head CT. The dose-length product (DLP) was 605.33 mGy-cm. The mA was a djusted according to patient size. Iterative reconstruction technique was employed. FINDINGS: There is no acute intraparenchymal hemorrhage. No evidence of mass lesion. No evidence of a cute infarction. There is mild periventricular and subcortical hypodensity probably related to small vessel ischemic disease. There is mild prominence of the sulci and ventricles related to cerebral atr ophy. Intracranial calcified cerebral atherosclerosis is noted. There are no extra-axial collections. There is no mass effect or midline shift. There is right periorbital soft tissue swelling. The orbit s are unremarkable. The visualized sinuses and mastoid air cells are well aerated. IMPRESSION: 1. Right periorbital soft tissue swelling without acute intracranial abnormality. 2. Age related findings. Reviewed, dictated and finalized at location F. MARKER IMPRESSION: 1. Right periorbital soft tissue swelling without acute intracranial abnormalit y. 2. Age related findings.
--- NOTE | ~2022-06-10 | CT_ITS ---
EXAMINATION: CT facial & cervical spine wo DATE: 06/10/2022 17:25 INDICATION: Head injury TECHNIQUE: Computed tomography (CT) of the maxillofacial region and cervical spine was performed with out intravenous contrast. The dose-length product (DLP) was 251.48 mGy-cm. Automated exposure control and iterative reconstruction technique were employed. COMPARISON: 06/04/2022 FINDINGS: MAXILLOFACIAL CT: There is right periorbital soft tissue swelling. No facial fracture is identified. The globes and orb its are normal. There are 5 mm of leftward deviation of the nasal septum. There is mild mucosal thick ening of the paranasal sinuses. There is osteoarthritis of the right temporomandibular joint. CERVICAL SPINE CT: There is no fracture. There are 2 mm of retrolisthesis of C4 on C5. The vertebral body heights are ma intained. There is severe loss of intervertebral disc space height from C3-4 through C6-7. The odonto id process is intact. Small degenerative osteophytes project from the anterior endplates of multiple vertebral bodies. There is multilevel moderate facet and uncovertebral joint osteoarthritis. The prev ertebral soft tissues are normal. IMPRESSION: 1. Right periorbital soft tissue swelling without acute facial fracture. 2. Severe cervical spondylosis without acute findings or significant interval change. Reviewed, dictated and finalized at location F. CTOR OF ANALYTICAL DEVELOPMENT IMPRESSION: 1. Right periorbital soft tissue swelling without acute facial fracture. 2. Severe cervical spondylosis without acute findings or significant interval ramos rhoades.
[2022-06-10 17:28] VITALS: BP 123/85; PULSE 75; RESP 18; TEMP 36.2; O2SAT 92
[2022-06-10 18:47] VITALS: BP 158/89; PULSE 74; RESP 16; O2SAT 99
--- NOTE | 2022-06-10 18:48 | PC.NURSE ---
family requesting pt not be changed into gown.
--- NOTE | 2022-06-10 19:16 | ED.HEATRA ---
HPI - Head Injury General Chief complaint: Head Injury Stated complaint: fall/facial injury Time Seen by Provider: 06/10/22 18:37 Source: patient and family Mode of arrival: ambulatory Limitations: dementia History of Present Illness HPI Narrative: Patient is a 76 y/o male who presents to the ED with c/o head injury. Patient has a history of Parkinson's and dementia. He is currently a resident of [facility]. Family at bedside assisted in providing information. They report patient had a witnessed fall as he was trying to stand up from sitting. He fell forward, hitting his head on the ground. He sustained a small abrasion to his right eyebrow, but did not lose consciousness. Patient has been ambulatory at the fall. Denies any other injuries. He has been neurologically at his baseline per family. Patient denies any dizziness, lightheadedness, vision changes, nausea. Patient is not on any blood thinners. Tetanus status up-to-date. Related Data Home Medications Medication Instructions Recorded Confirmed carbidopa 25 mg-levodopa 100 mg 2 tablet PO .05/29/22 05/29/22 tablet divalproex 125 mg capsule,delayed 250 mg PO DAILY 05/29/22 05/29/22 release sprinkle divalproex 125 mg capsule,delayed 500 mg PO .1PM/6PM 05/29/22 05/29/22 release sprinkle melatonin 3 mg tablet 6 mg PO HS 05/29/22 05/29/22 ointment base no.51 (bulk) 1 ea topical DAILY 05/29/22 05/29/22 quetiapine 100 mg tablet 100 mg PO .6PM 05/29/22 05/29/22 quetiapine 25 mg tablet 25 mg PO .8AM/RPM 05/29/22 05/29/22 quetiapine 50 mg tablet 50 mg PO .8AM/4PM/6PM 05/29/22 05/29/22 rivastigmine 4.6 mg topical Q24H 05/29/22 05/29/22 simvastatin 20 mg tablet 20 mg PO .6PM 05/29/22 05/29/22 multivitamin-ferrous tablet PO 06/04/22 fumarate-folic acid 18 mg-400 mcg tablet (Certavite-Antioxidant) quetiapine 100 mg tablet mg 06/04/22 Allergies Allergy/AdvReac Type Severity Reaction Status Date / Time quetiapine [From Seroquel] Allergy Unknown Verified 06/04/22 17:07 Review of Systems Review of Systems: ROS unobtainable: Yes unobtainable due to mental status [facility] Past Medical History Medical History (Updated 06/10/22 @ 20:38 by Brianna Wang PA-C) Dementia due to Parkinson's disease, with psychotic disturbance HLD (hyperlipidemia) Surgical History Surgical History Status post cataract extraction of both eyes with insertion of intraocular lens Family History Family History Mother Memory change Social History Social History Social History: Patient resides at [facility]. Code status: DNR/DNI (per senior living records) Smoking status: Former smoker Additional smoking assessment comments: quit at age 29 Alcohol intake: unknown Substance use: never Substance use type: does not use Spiritual care concerns: No Exam Narrative: GENERAL: Elderly, well-nourished, non-toxic, in no acute distress. HEAD: Normocephalic. Small abrasion above R eyebrow, with mild swelling/contusion noted. No deeper wounds or lacerations. No active bleeding. EYES: PERRLA/EOMI, conjunctiva clear. NECK: Supple. No adenopathy, no masses. No appreciable midline spinal tenderness. RESPIRATORY: Airway patent, respirations nonlabored. Clear to auscultation bilaterally, no rales, rhonchi, wheezing. CARDIOVASCULAR: Regular rate and rhythm without murmurs, rubs, or gallops. Radial pulses 2+ and equal bilaterally. MUSCULOSKELETAL: Moves all extremities. Strength/ROM intact without gross deformities. No appreciable midline thoracic or lumbar spinal tenderness. No palpable deformities or bony step-offs. SKIN: Warm, dry, normal color. No rashes. NEURO: Alert, answers some questions. Speech clear. Cranial nerves II-XII grossly intact. Steady gai
--- NOTE | 2022-06-10 19:28 | PC.NURSE ---
Assumed care of pt at this time. Pts family concerned for missing pts night medications. ANGELA Reed notified.
[2022-06-10] MEDS: QUEtiapine FUMARATE 100 MG TABLET PO (20:02)
[2022-06-10] MEDS: CARBIDOPA/LEVODOPA 25/100 MG TABLET 2 TABLET PO (20:02)
[2022-06-10] MEDS: DIVALPROEX SODIUM SPRINKLE 125 MG CAP.DR 500 MG PO (20:02)
== END 2022-06-10 20:21 ==
PROVIDERS: Emergency Provider Physician Assistant
DX: S00.81XA Abrasion of other part of head, initial encounter (principal); G20 Parkinson's disease; E78.5 Hyperlipidemia, unspecified; W07.XXXA Fall from chair, initial encounter
CPT/HCPCS: 70450; 70486; 72125; 99284; A9270